=== PATIENT | female | born 2000 | race Caucasian/White ===

== ENCOUNTER 2020-08-18 11:00 | Outpatient (CLI) | payer OTHER ==
[~2020-08-18] VITALS: Ht 172.7 cm; Wt 86.0 kg
[2020-08-18 11:06] VITALS: BP 129/72
[2020-08-18 11:39] VITALS: BP 122/74
[2020-08-18 12:08] VITALS: BP 118/72
[2020-08-18] MEDS ORDERED: PRENTAB9 PO (12:45)
[2020-08-18] MEDS ORDERED: FLUCONAZOLE 50MG TABLET PO ONE (13:00)
[2020-08-18 13:29] LABS: AMORPHOUS SEDIMENT SMALL (NEGATIVE); APPEARANCE, URINE HAZY (CLEAR); BACTERIA, URINE AUTO NEGATIVE (NEGATIVE); BILIRUBIN, URINE AUTO NEGATIVE (NEGATIVE); BLOOD, URINE BLOOD 2+ (NEGATIVE); COLOR, URINE YELLOW (YELLOW); GLUCOSE, URINE (UA) AUTO NEGATIVE (NEGATIVE); KETONE, URINE AUTO NEGATIVE (NEGATIVE); LEUKOCYTE ESTERASE, URINE AUTO 3+ (NEGATIVE); MUCUS, URINE SMALL (NEGATIVE); NITRITE, URINE AUTO NEGATIVE (NEGATIVE); PROTEIN, URINE AUTO 1+ mg/dL (NEGATIVE); RBC, URINE AUTO 13 /HPF (0-3); SPECIFIC GRAVITY URINE AUTO 1.017 (1.002-1.035); SQUAMOUS EPITHELIAL CELL UR AU 4 /HPF (0-6); UROBILINOGEN, URINE AUTO 0.2 mg/dL (0.0-2.0); WBC, URINE AUTO 6 /HPF (0-3)
--- NOTE | 2020-08-18 14:41 | IPNPDOC ---
Text Note Date of Service The patient was seen on 08/18/20. NOTE S: 20yo BRAIN [id number] @34+2 presents to triage with c/o labor pain, feeling like she is having the baby. States frequent contractions since 1000, denies, bleeding, discharge, burning, itching, odor. States +FM and feeling wet on the drive in to the hospital. O:VSS Cervical exam on arrival 1/long/high/posterior RNST, fhr 150s, mod variability, +accel, -decel, thee q3-4 min Speculum exam completed with copious amounts of thick and adherent green vaginal discharge. No pooling was noted from the cervical os. GC/CT/trich, MEIR/WP, GBS, and ferning were collected. -pooling, -nitrazine, -ferning +hyphae, -clue UA negative GC/CT/trich, GBS, and Urine culture pending Contractions and pain decreased with oral hydration Repeat cervical exam unchanged at 1410: 1/long/high/posterior A: acute vaginitis, tori contractions P:Diflucan 150mg po x1 discharge to home with ptl precautions reasons to return for care hydration kick counts contact information ZACHARY CAHPA CNM August 18, 2020 14:41
[2020-08-18 14:43] LABS: CHLAMYDIA DNA AMPLIFICATION NEGATIVE (NEGATIVE); GC DNA AMPLIFICATION NEGATIVE (NEGATIVE)
== END 2020-08-18 14:25 | disposition home or self-care (01) ==
LOC: M LDO 11:00
PROVIDERS: ATTEND Obstetrics & Gynecology
DX: O23.593 Infection of other part of genital tract in pregnancy, third trimester (principal); B37.9 Candidiasis, unspecified; Z3A.34 34 weeks gestation of pregnancy; O60.03 Preterm labor without delivery, third trimester
CPT/HCPCS: 59025; 81001; 87081; 87086; 87186; 87661; G0378; G0463